=== PATIENT | male | born 1965 | race Caucasian/White ===

== ENCOUNTER 2019-12-16 14:07 | Emergency (ER) | payer MEDICAID ==
[~2019-12-16] VITALS: Ht 188 cm; Wt 104.3 kg
[2019-12-16] MEDS ORDERED: NEURONTIN600 MG PO (14:28)
[2019-12-16] MEDS ORDERED: COMBIVENT RESPIM4 GM INH (14:29)
[2019-12-16] MEDS ORDERED: NORCO 5-325 TA1 EACH PO (16:37)
== END 2019-12-16 16:47 | disposition home or self-care (01) ==
LOC: ED 14:07
DX: S06.0X9A Concussion with loss of consciousness of unspecified duration, initial encounter (principal); S16.1XXA Strain of muscle, fascia and tendon at neck level, initial encounter; S46.912A Strain of unspecified muscle, fascia and tendon at shoulder and upper arm level, left arm, initial encounter; W22.8XXA Striking against or struck by other objects, initial encounter; F17.200 Nicotine dependence, unspecified, uncomplicated; Z79.899 Other long term (current) drug therapy
CPT/HCPCS: 70450; 72125; 73010; 73030; 99284-25